=== PATIENT | male | born 1995 ===

== ENCOUNTER → 2021-02-22 | Outpatient (CLI) | payer OTHER ==
--- NOTE | 2021-02-22 10:33 | RAD ---
EXAM: CT ABDOMEN/PELVIS WITHOUT CONTRAST. HISTORY: Flank pain. TECHNIQUE: Computed tomography of the abdomen and pelvis was performed without intravenous contrast. One or more of the following individualized dose reduction techniques were utilized for this examinat ion: 1. Automated exposure control. 2. Adjustment of the mA and/or kV according to patient size. 3. Use of iterative reconstruction technique. COMPARISON: None. FINDINGS: Lung windows through the visualized portions of the bases reveal a 4 mm uncalcified nodule in the left lower lobe on image 13, likely benign at this small size. Bone windows reveal no suspicio us lesions. There is a calcified granuloma in the liver. The spleen, pancreas, adrenal glands and gallbladder are unremarkable without contrast. Note is made of a retroaortic left renal vein. There are no pathologi audie enlarged lymph nodes. The appendix is not inflamed. There is no small bowel obstruction. There are no renal or ureteral calculi. There are no suspicious renal lesions without contrast. IMPRESSION: 1. No renal or ureteral calculi. No cause for pain is identified. Electronically signed by: Gabriel Figueroa MD (02/22/2021 10:31 AM) [id number]
== END ==
LOC: CT 09:51
PROVIDERS: ATTEND Emergency Medicine
DX: K75.3 Granulomatous hepatitis, not elsewhere classified (principal); R91.1 Solitary pulmonary nodule
CPT/HCPCS: 74176